=== PATIENT | female | born 1995 | race Caucasian/White ===

== ENCOUNTER 2017-03-09 06:39 | Emergency (ER) | payer BC, MEDICAID ==
[~2017-03-09] VITALS: Ht 160 cm; Wt 79.2 kg
[2017-03-09 06:41] VITALS: Ht 160 cm; Wt 79.2 kg
[2017-03-09] MEDS ORDERED: TETRACAINE 0.5% 4 ML OPH LEFT EYE ONE (07:30)
[2017-03-09] MEDS ORDERED: FLUORESCEIN STRIP LEFT EYE ONE (07:30)
[2017-03-09] MEDS ORDERED: IBUP-1542 PO (08:54)
[2017-03-09] MEDS ORDERED: DOXY100T20 PO (08:54)
[2017-03-09] MEDS ORDERED: ACYC800T57 PO (08:54)
--- NOTE | 2017-03-09 09:02 | ERD ---
ER Documentation Chief Complaint Chief Complaint LT EYE PAIN WITH RASH ON FOREHEAD HPI This a 21-year-old female who presents the emergency department today complaining of left eye pain and a rash on her forehead. Patient states that the rash started on Tuesday and she thought it was acne and so there she scratched at it. States that her eye pain started 2 days later. Denies any fevers or chills, blurred vision. States she does wear glasses. ROS All systems reviewed and are negative except as per history of present illness. Medications Home Meds Active Scripts Ibuprofen* (Motrin*) 600 Mg Tab, 600 MG PO Q6, #30 TAB Prov:DORIS RICCI PA-C 03/09/17 Doxycycline Hyclate* (Doxycycline Hyclate*) 100 Mg Tablet.dr, 100 MG PO BID for 7 Days, TAB Prov:DORIS RICCI PA-C 03/09/17 Acyclovir* (Zovirax*) 800 Mg Tablet, 800 MG PO 5 TIMES DAILY for 7 Days, TAB Prov:DORIS RICCI PA-C 03/09/17 Allergies Allergies: Coded Allergies: No Known Allergy (Unverified , 03/09/17) PMhx/Soc Medical and Surgical Hx: pt denies Medical Hx, pt denies Surgical Hx Hx Miscellaneous Medical Probl: No (DENIES SURGERIES/PMH) Hx Alcohol Use: No Hx Substance Use: No Hx Tobacco Use: No Physical Exam Vitals Vital Signs Date Time Temp Pulse Resp B/P Pulse Ox O2 Delivery O2 Flow Rate FiO2 03/09/17 06:41 97.9 90 22 130/75 98 Physical Exam Const: NAD Head: Atraumatic Eyes: Normal Conjunctiva. PERRLA, EOM intact ENT: Normal External Ears, Nose and Mouth.. No evidence of Neal sign Neck: Full range of motion..~ No meningismus. Resp: Clear to auscultation bilaterally Cardio: Regular rate and rhythm, no murmurs Abd: Soft, non tender, non distended. Normal bowel sounds Skin: Clustered Vesicular dried lesions on left side of forehead along frontal aspect and hairline and one lesion on left eye lid Back: No midline or flank tenderness Ext: No cyanosis, or edema Neur: Awake and alert Psych: Normal Mood and Affect Results 24 hrs Current Medications Medications (Trade) Dose Ordered Sig/Roberto Route PRN Reason Start Time Stop Time Status Last Admin Dose Admin Tetracaine HCl (Tetracaine 0.5% Steri-Unit Opal) 1 drop ONCE ONCE LEFT EYE 03/09/17 07:30 03/09/17 07:32 DC Fluorescein Sodium (Fwntp-D-Sirtc) 1 strip ONCE ONCE LEFT EYE 03/09/17 07:30 03/09/17 07:32 DC Procedures/MDM This is a 21-year-old female who presents the emergency department today complaining of left eye pain and a rash. Patient indicated the rash started 2 days before the left eye pain. On physical exam there is small clustered lesions that are dried along the patient's left side of her forehead, hairline and left eyelid. I did do a visual acuity and stained the eye for dendritic lesions. There is no evidence of dendritic lesions at this time. Her symptoms at this time is consistent with shingles versus impetigo. I did have Dr. Woo see and evaluate the patient and he is in agreement that the patient should be placed on doxycycline and acyclovir. visual acuity right eye 20/40 left eye 20/40 bilateral 20/40 Patient does wear glasses. Low suspicion for acute narrow angle glaucoma, globe rupture, hyphema, cellulitis, sepsis, SJS, meningitis, severe acute bacterial infection. Patient was instructed to follow-up with her primary care doctor she was given a list of resources. She does have an eye doctor that she got her glasses from an I am instructed her to follow-up with that eye doctor. I do have low suspicion for herpes ophthalmicus. There is no evidence of Neal sign. I gave her information for [facility]. At this time the patient is stable for discharge and outpatient management. Patient should follow up with their PCP in the next 1-2 days. They may return to the emergency department sooner for any persistent or worsening of symptoms. Patient and father understood and agreed with the plan. Departure Diagnosis: Primary Impression: Rash Additional Impression: Pain in eye Laterality: left Qualified Code: H57.12 - Pain of left eye Condition: Fair Patient Instructions: Shingles (Herpes Zoster), Impetigo Referrals: your eye doctor [facility] YOU HAVE RECEIVED A MEDICAL SCREENING EXAM AND THE RESULTS INDICATE THAT YOU DO NOT HAVE A CONDITION THAT REQUIRES URGENT TREATMENT IN THE EMERGENCY DEPARTMENT. FURTHER EVALUATION AND TREATMENT OF YOUR CONDITION CAN WAIT UNTIL YOU ARE SEEN IN YOUR DOCTORS OFFICE WITHIN THE NEXT 1-2 DAYS. IT IS YOUR RESPONSIBILITY TO MAKE AN APPOINTMENT FOR FOLOW-UP CARE. IF YOU HAVE A PRIMARY DOCTOR --you should call your primary doctor and schedule an appointment IF YOU DO NOT HAVE A PRIMARY DOCTOR YOU CAN CALL OUR PHYSICIAN REFERRAL HOTLINE AT IF YOU CAN NOT AFFORD TO SEE A PHYSICIAN YOU CAN CHOSE FROM THE FOLLOWING [facility] [address] [facility] [place] [address] [facility] [address] [facility] [address] [facility] [address] [facility]. [address] [facility]. [facility] [place] Hours: Mon - Fri 9:00 AM - 5:00 PM Additional Instructions: Call your primary care doctor TOMORROW for an appointment during the next 1-2 days.See the doctor sooner or return here if your condition worsens before your appointment time. Take Medications as prescribed. Keep area clean and dry. Tylenol or Motrin for pain DORIS RICCI PA-C Mar 09, 2017 09:02
--- NOTE | 2017-03-09 18:48 | EN ---
Date/Time of Note Date/Time of Note DATE: 03/09/17 TIME: 18:35 ER Progress Note S: This patient was evaluated by me in conjunction with the PA. Briefly, this is a 21-year-old female with a past medical history of visual impairment requiring corrective lenses as well as acne for which she utilizes over-the- counter facial treatments who is presenting with a rash to the face. The patient has several areas of consolidating lesions to the left upper forehead and one to the base of the left nose. It does appear to be leal crusted. She has acne to the right side of the face, but no eruptive lesions. The patient reports that the initial lesion on the left side of the face started out as a pimple and it broke on its own after which it started to spread. The patient was concerned about continuing to spread, which is what prompted her to come to the emergency department for further evaluation and management. The patient also reports mild left-sided ocular pain with movement. The patient has never had the chickenpox. She did receive the chickenpox vaccine as a child. The patient has no other complaints. The patient denies feeling sick recently. The patient denies fever or chills. The patient has had no headache or vision changes. The patient does not endorse neck or back pain. The patient denies lightheadedness or dizziness. The patient has had no chest pain or shortness of breath or trouble breathing. The patient denies nausea or vomiting. The patient denies abdominal pain or changes to bowel movements or urination. The patient has had no focal deficits. The patient has had no weakness or numbness or tingling to the face or extremities. ROS/PMH/PSH/SH/FH: Reviewed as per the PAs dictation O: Vital signs reviewed Const: No apparent distress, well-developed, well-nourished Head: Atraumatic Eyes: Normal Conjunctiva. Extraocular movements intact. As per the PA exam, no dendritic lesions on floor seen dye under Weinstein lamp ENT: Normal External Ears, Mouth. Small leal crusted lesion to the base of the left nares Neck: Full range of motion. No meningismus. Skin: No petechiae. Comedones sporadically on the patient's face with leal crusted eruptive lesions to the left forehead and left nares as described above Ext: No cyanosis, or edema Neur: Awake and alert, oriented 4. Cranial nerves intact. No facial droop. Normal strength and sensation in all extremities. Coordination with finger to nose normal. Psych: Normal Mood and Affect A: Rash - Impetigo vs. Herpes Zoster P: The patient has a rash to the left face. The patient does have acne on the right side of the face as well, but is not quite similar in appearance as those lesions have not erupted. I do suspect impetigo as the patient's primary diagnosis. However, there is an area on the patient's face that does appear similar to several vesicular type reactive lesions. There is no reason to suspect that the patient is immunocompromised, and she did not have the chickenpox. However, it is possible to have herpes zoster after having had the vaccine. Herpes zoster could not be definitively excluded in the emergency department. Therefore, I do intend to treat her both. Neal sign was not present, and there is no evidence to suggest ophthalmologic involvement. The PA will provide prescriptions of doxycycline as well as acyclovir. The patient should follow-up with the primary care physician in 2-3 days. At that time, the decision can be made about whether or not the patient may benefit from a dermatology referral. CELINA GRIJALVA MD Mar 09, 2017 18:48
== END 2017-03-09 09:32 | disposition home or self-care (01) ==
LOC: FTE 06:39
DX: H57.12 Ocular pain, left eye (principal); R21 Rash and other nonspecific skin eruption
CPT/HCPCS: Z7502; Z7610; 99284

== ENCOUNTER 2017-05-25 10:10 | Emergency (ER) | END 2017-05-25 12:30 | disposition home or self-care (01) ==

== ENCOUNTER 2017-09-15 04:29 | Emergency (ER) | END 2017-09-15 05:35 | disposition home or self-care (01) ==